=== PATIENT | male | born 1965 | race African-American/Black ===

== ENCOUNTER 2018-12-02 17:42 | Emergency (ER) | payer OTHER ==
[2018-12-02 17:57] VITALS: BP 134/88; PULSE 72; TEMP 98.6; BMI 25.1
[2018-12-02] MEDS ORDERED: SULFAMETHOXAZOLE/TRIMETHOPRIM 800MG/160MG D.S. TABLET PO ONE (18:11)
[2018-12-02] MEDS ORDERED: SULFAMETHOXAZOLE/TRIMETHOPRIM 800MG/160MG D.S. TABLET ONE (18:19)
--- NOTE | 2018-12-02 18:26 | PDOC ---
History of Present Illness - General Chief Complaint: Rash Stated Complaint: INSECT BITE Time Seen by Provider: 12/02/18 17:56 History Source: Patient Exam Limitations: No Limitations Past History - Past Medical History Allergies/Adverse Reactions: Allergies Allergy/AdvReac Type Severity Reaction Status Date / Time Penicillins Allergy Verified 12/02/18 17:53 Home Medications: Ambulatory Orders Gabapentin [Neurontin -] 300 mg PO Q8H 12/02/18 Hydrocortisone 1% Cream [Hytone 1% Cream -] 1 applic TP BID #1 tube 12/02/18 Sulfamethoxazole/Trimethoprim [Bactrim Ds -] 1 tab PO BID #14 tablet 12/02/18 COPD: No - Suicide/Smoking/Psychosocial Hx Smoking History: Unknown if ever smoked *Physical Exam - Vital Signs Last Vital Signs Temp Pulse Resp BP Pulse Ox 98.6 F 72 16 134/88 99 12/02/18 17:56 12/02/18 17:56 12/02/18 17:56 12/02/18 17:56 12/02/18 17:56 - Physical Exam General Appearance: No: Apparent Distress HEENT: positive: Pharynx Normal Respiratory/Chest: positive: Lungs Clear, Normal Breath Sounds. negative: Respiratory Distress Cardiovascular: positive: Regular Rhythm, Regular Rate, S1, S2. negative: Murmur Integumentary: positive: Rash (+raised erythmatous day along R aspect of neck (almost appearing as bite day), with raised maculopapular redness along neck, rash is not noted anywhere else, not vesicular in appearnce). negative: Jaundice, Clammy, Swelling, Ecchymosis, Bruising Neurologic: positive: Alert, Normal Mood/Affect Medical Decision Making - Medical Decision Making 53 y/o M hx of epilepsy (no longer on meds), asthma presents with rash along R aspect of neck x 1 week. Rash appeared while patient was helping his boss in the backyard. Is unsure if maybe something bit him. Denies recent travel, use of new meds/food/products. States was initially itchy and a bit painful, but is not anymore. Denies fever, sob, cp, abd pain, n/v/d. Unclear cause of rash - does not appear urticarial, vesicular Consider infectious cause? Will give dose of Bactrim and also trial hydrocortisone cream 12/02/18 18:15 *DC/Admit/Observation/Transfer Diagnosis at time of Disposition: Rash - Discharge Dispostion Disposition: HOME Condition at time of disposition: Stable Decision to Admit order: No - Prescriptions Prescriptions: Hydrocortisone 1% Cream [Hytone 1% Cream -] 1 applic TP BID #1 tube Sulfamethoxazole/Trimethoprim [Bactrim Ds -] 1 tab PO BID #14 tablet - Referrals - Patient Instructions Printed Discharge Instructions: DI for Rash Additional Instructions: Thank you for choosing [facility]. It was a pleasure taking care of you. Take the antibiotic as prescribed twice a day Also apply the topical cream to your rash Follow-up with your doctor in 2 days Return to the Emergency Department if your symptoms worsen or persist, you have fever, worsening of rash or other concerning symptoms. - Post Discharge Activity
== END 2018-12-02 18:36 | disposition home or self-care (01) ==
LOC: JERFT 17:42
DX: R21 Rash and other nonspecific skin eruption (principal); Z86.69 Personal history of other diseases of the nervous system and sense organs; Z87.09 Personal history of other diseases of the respiratory system
CPT/HCPCS: 99281-25

== ENCOUNTER 2019-06-05 09:23 | Emergency (ER) | payer OTHER ==
[2019-06-05] MEDS ORDERED: TETRACAINE 0.5% HCL 0.6ML DROPPER.BOTTLE OS ONE (09:36)
--- NOTE | 2019-06-05 09:36 | PDOC ---
History of Present Illness - General Chief Complaint: Eye Problem Stated Complaint: RIGHT EYE RED AND THROBBING Time Seen by Provider: 06/05/19 09:27 - History of Present Illness Initial Comments: 06/05/19 10:02 Chief complaint: Pain right eye HPI: Patient complains of pain, redness, and photophobia in the right eye since yesterday. No loss of vision. 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 It is possible something enter his eye at this time. Review of systems: As noted above. Otherwise reviewed and negative Past medical history: Prior metallic foreign body in the right eye approximately 2 years ago. Healed well. Asthma under control. Social/family history reviewed and noncontributory Physical exam: Alert and oriented well-developed well-nourished mild distress due to right eye discomfort, but cooperative Afebrile, vital signs normal. Visual acuity is 20/25 in each eye with glasses. Right eye: Conjunctiva moderately injected. Pupil round and reactive 3 mm. EOMs full without diplopia. Visual ibarra intact to confrontation. Fundus is benign. There is a punctate stain noted at approximately 9:00, border of the cornea. This is possibly a foreign body. Impression: Conjunctivitis, rule out foreign body. Plan: Dr. Cole, it service manager, was contacted by phone. The case was discussed. He will see the patient immediately in his office. The possibility of a serious injury was discussed with the patient, and the need for immediate follow-up as directed to avoid serious damage and/or visual loss. He understands and agrees. Past History - Past Medical History Allergies/Adverse Reactions: Allergies Allergy/AdvReac Type Severity Reaction Status Date / Time Penicillins Allergy Verified 06/05/19 09:24 Home Medications: Ambulatory Orders Gabapentin [Neurontin -] 300 mg PO Q8H 12/02/18 Albuterol Sulfate [Albuterol Sulfate Hfa] 1 inh IN PRN 06/05/19 Budesonide/Formeterol Fumarate [SYMBICORT 160/4.5mcg -] 1 inh IN DAILY 06/05/19 COPD: No - Psycho Social/Smoking Cessation Hx Smoking History: Unknown if ever smoked Discharge - Discharge Information Problems reviewed: Yes Clinical Impression/Diagnosis: Foreign body, eye Qualifiers: Encounter type: initial encounter Laterality: right Qualified Code(s): T15.91XA - Foreign body on external eye, part unspecified, right eye, initial encounter Condition: Stable Disposition: HOME - Admission No - Follow up/Referral Referrals: Casper Cole MD [Staff Physician] - - Patient Discharge Instructions Additional Instructions: There may be a foreign body in the right eye that is causing your redness and pain. It is important that you be examined immediately by an it service manager ( eye doctor) in order to possibly prevent further eye damage and visual loss. We have spoken to Dr. Cole, who will see you immediately in his office at [address] [place] [address]. Please go there right away for further examination and treatment. - Post Discharge Activity
[2019-06-05] MEDS ORDERED: FLUORESCEIN NA 1 EA STRIP OU ONE (09:37)
[2019-06-05] MEDS ORDERED: TETRACAINE 0.5% OPHTH SOLN 2 ML BOTTLE ONE (09:38)
[2019-06-05 09:39] VITALS: BP 122/93; PULSE 71; TEMP 98.2; BMI 34.0
[2019-06-05] MEDS ORDERED: FLUORESCEIN NA 1 EA STRIP ONE (09:39)
[2019-06-05] MEDS ORDERED: IBUPROFEN 400 MG TABLET (FP) PO ONE ×2 (09:57→09:58)
== END 2019-06-05 10:06 | disposition home or self-care (01) ==
LOC: FER 09:23
DX: T15.91XA Foreign body on external eye, part unspecified, right eye, initial encounter (principal); X58.XXXA Exposure to other specified factors, initial encounter; Y93.89 Activity, other specified; Y92.89 Other specified places as the place of occurrence of the external cause; Y99.0 Civilian activity done for income or pay; Z88.0 Allergy status to penicillin
CPT/HCPCS: 99281-25

== ENCOUNTER 2019-08-08 01:48 | Emergency (ER) | payer OTHER ==
[2019-08-08 02:05] VITALS: TEMP 98.3; BMI 25.1
--- NOTE | 2019-08-08 04:39 | PDOC ---
Attending Attestation - Resident Resident Name: Amanda Lindsay - ED Attending Attestation I have performed the following: I have examined & evaluated the patient, The case was reviewed & discussed with the resident, I agree w/resident's findings & plan - HPI HPI: 08/08/19 05:30 see resident hpi - Physicial Exam PE: 08/08/19 05:30 agree with resident exam - Medical Decision Making 08/08/19 05:31 53-year-old male status post trip and fall with right ankle swelling X-ray shows no obvious fracture or dislocation Due to swelling and tenderness and inability to ambulate patient will be placed in a splint, OCL with crutches until seen by orthopedics Neurovascularly intact distally
--- NOTE | 2019-08-08 04:39 | PDOC ---
History of Present Illness - General Chief Complaint: Injury Stated Complaint: ANKLE SWELLING Time Seen by Provider: 08/08/19 04:20 - History of Present Illness Initial Comments: 08/08/19 04:47 HPI: 53 y/o M with hx of asthma (on albuterol and symbicort) and right hip replacement presenting with right ankle pain and swelling following a fall. Patient said he turned a corner and felt unsteady and rolled his ankle inward. Had significant 10/10 pain and swelling and came to ED. Reports mild tingling at the lateral maleolus since the swelling has been worsening. Pain worse with ambulation and pressure. Hasnt tried any meds yet. No open wounds or abrasion or erythema PMHx: as noted above ROS: as noted SHx: Denies tobacco use; no alcohol use; no rec drugs Allergies: penicillin ROS: GENERAL/CONSTITUTIONAL: No fever or chills. No weakness. HEAD, EYES, EARS, NOSE AND THROAT: No change in vision. No ear pain or discharge. No sore throat. CARDIOVASCULAR: No chest pain or shortness of breath RESPIRATORY: No cough, wheezing, or hemoptysis. GASTROINTESTINAL: No nausea, vomiting, diarrhea or constipation. GENITOURINARY: No dysuria, frequency, or change in urination. MUSCULOSKELETAL: +ankle pain SKIN: No rash NEUROLOGIC: No headache, vertigo, loss of consciousness, or change in strength/ sensation. ENDOCRINE: No increased thirst. No abnormal weight change HEMATOLOGIC/LYMPHATIC: No anemia, easy bleeding, or history of blood clots. ALLERGIC/IMMUNOLOGIC: No hives or skin allergy. PE: GENERAL: Awake, alert, and fully oriented, mild acute distress HEAD: No signs of trauma, normocephalic, atraumatic EYES: EOMI, sclera anicteric, conjunctiva clear ENT: Auricles normal inspection, hearing grossly normal, nares patent, oropharynx clear without exudates. Moist mucosa NECK: Normal ROM, no lymphadenopathy LUNGS: No increased work of breathing, symmetrical chest rise, clear to auscultation bilaterally, no wheezes, crackles or rhonchi HEART: Regular rate and rhythm, normal S1 and S2, no murmur, peripheral pulses 2 + and equal bilaterally. ABDOMEN: Soft, nondistended, nontender, normoactive bowel sounds. No guarding, no rebound. No masses. No CVAT MUSCULOSKELETAL: right ankle with significant edema starting at distal mid solis to dorsum of foot, ttp lateral and medial maleolus as well as distal tib/fib, sensation intact, 2+ DP, motion of metatarsals intact, unable to tolerate ROM of ankle NEUROLOGICAL: Cranial nerves II through XII grossly intact. Normal speech, normal gait, no focal sensorimotor deficits SKIN: Warm, Dry, normal turgor, no rashes or lesions noted Past History - Past Medical History Allergies/Adverse Reactions: Allergies Allergy/AdvReac Type Severity Reaction Status Date / Time Penicillins Allergy Verified 08/08/19 02:04 Home Medications: Ambulatory Orders Gabapentin [Neurontin -] 300 mg PO Q8H 12/02/18 Albuterol Sulfate [Albuterol Sulfate Hfa] 1 inh IN PRN 06/05/19 Budesonide/Formeterol Fumarate [SYMBICORT 160/4.5mcg -] 1 inh IN DAILY 06/05/19 Asthma: Yes COPD: No - Psycho Social/Smoking Cessation Hx Smoking History: Never smoked Hx Alcohol Use: No Drug/Substance Use Hx: No *Physical Exam - Vital Signs Last Vital Signs Temp Pulse Resp BP Pulse Ox 98.3 F 100 H 18 123/77 98 08/08/19 02:03 08/08/19 02:03 08/08/19 02:03 08/08/19 02:03 08/08/19 02:03 Medical Decision Making - Medical Decision Making 08/08/19 05:30 53 y/o M with hx of asthma and right hip replacement presenting with right ankle pain and swelling following a fall. VSS, AF. PE with right ankle significant edema starting at distal mid solis to dorsum of foot, ttp lateral and medial maleolus as well as distal tib/fib, sensation intact, 2+ DP, motion of metatarsals intact, unable to tolerate ROM of ankle -XR right foot, ankle, tib fib 08/08/19 05:31 No fx observed at this time pain control with percocet will apply splint and vipul wrap DC home with pcp and ortho followup Discharge - Discharge Information Problems reviewed: Yes Clinical Impression/Diagnosis: Ankle sprain Qualifiers: Encounter type: initial encounter Involved ligament of ankle: unspecified ligament Laterality: right Qualified Code(s): S93.401A - Sprain of unspecified ligament of right ankle, initial encounter Condition: Stable Disposition: HOME - Follow up/Referral Referrals: Pito Villalpando [Primary Care Provider] - Kailash Johnson MD [Staff Physician] - Jaren Valerio MD [Staff Physician] - - Patient Discharge Instructions Patient Printed Discharge Instructions: DI for Ankle Sprain Additional Instructions: Additional Instructions: Please return to the emergency department with any new or worsening symptoms or concerns. Please follow up with your primary care physician this week. Please follow up with an orthopedist; we have listed a couple for you to call You may take motrin 600mg every 6 hours for pain control. You may ice your ankle for relief. Please keep your ankle elevated - Post Discharge Activity
[2019-08-08] MEDS ORDERED: HYDROmorphone HCL CARPU-JECT 2 MG/1 ML DISP.SYRIN IVPUSH ONE ×2 (04:40→04:52)
[2019-08-08] MEDS ORDERED: HYDROmorphone HCl 2 MG/ML VIAL ONE (04:43)
[2019-08-08 06:00] VITALS: BP 125/81; PULSE 67
== END 2019-08-08 06:20 | disposition home or self-care (01) ==
LOC: JER 01:48
PROC: 2W3QX1Z Immobilization of Right Lower Leg using Splint (ICD-10-PCS; principal; 2019-08-08)
DX: S93.401A Sprain of unspecified ligament of right ankle, initial encounter (principal); W18.39XA Other fall on same level, initial encounter; Y93.89 Activity, other specified; Y92.480 Sidewalk as the place of occurrence of the external cause; Y99.8 Other external cause status; J45.909 Unspecified asthma, uncomplicated
CPT/HCPCS: 73590-TC-RT-FY; 73610-TC-RT-FY; 73630-TC-RT-FY; 99282-25

== ENCOUNTER 2019-08-11 23:36 | Emergency (ER) | payer OTHER ==
[2019-08-11 23:52] VITALS: TEMP 98.2
[2019-08-12 01:26] VITALS: BMI 22.3
--- NOTE | 2019-08-12 01:52 | PDOC ---
History of Present Illness - General Chief Complaint: Edema Stated Complaint: RT. LEG EDEMA Time Seen by Provider: 08/12/19 01:20 - History of Present Illness Initial Comments: 08/12/19 04:11 The patient is a 53 year old with a history of asthma who presents for evaluation of right lower extremity swelling. The patient reports that he was recently seen in the ED after rolling his ankle 4 days ago. His initial plain films were negative the patient was placed in a splint. The patient reports that he has had worsening swelling since that time prompting his presentation to the ED for further evaluation. He otherwise denies fevers, chills, SOB, chest pain, nausea, vomiting, abdominal pain, numbness, tingling, weakness, or decreased sensation. Past History - Past Medical History Allergies/Adverse Reactions: Allergies Allergy/AdvReac Type Severity Reaction Status Date / Time Penicillins Allergy Verified 08/08/19 02:04 Home Medications: Ambulatory Orders Gabapentin [Neurontin -] 300 mg PO Q8H 12/02/18 Albuterol Sulfate [Albuterol Sulfate Hfa] 1 inh IN PRN 06/05/19 Budesonide/Formeterol Fumarate [SYMBICORT 160/4.5mcg -] 1 inh IN DAILY 06/05/19 Asthma: Yes COPD: No - Psycho Social/Smoking Cessation Hx Smoking History: Never smoked Hx Alcohol Use: No Drug/Substance Use Hx: No Review of Systems - Review of Systems Comments:: 08/12/19 04:15 Constitutional: No fevers, chills, fatigue, malaise HEENT: No Rhinorrhea, nasal congestion, visual changes Cardiovascular: No chest pain, syncope, palpitations, lightheadedness Respiratory: No Cough, SOB, Hemoptysis, Gastrointestinal: No Abdominal pain, Nausea, Vomiting, Constipation, Diarrhea, Melena Genitourinary: No Dysuria, Frequency, Urgency, Hesitancy, Hematuria, Flank pain Musculoskeletal: Right lower extremity swelling. No Myalgia, arthralgia Skin: No rashes, itching, bruising, pallor Neurologic: No Headache, Dizziness, Numbness, Weakness, or Tingling Psychiatric: No Hallucinations. No SI or HI *Physical Exam - Vital Signs Last Vital Signs Temp Pulse Resp BP Pulse Ox 98.2 F 83 20 113/62 96 08/11/19 23:51 08/11/19 23:51 08/11/19 23:45 08/11/19 23:51 08/11/19 23:51 - Physical Exam 08/12/19 04:16 General Appearance: Nourished. No Apparent Distress HEENT: EOMI, TANIKA. No Pharyngeal Erythema, Tonsillar Exudate, Tonsillar Erythema Neck: No Cervical Lymphadenopathy Respiratory/Chest: Lungs Clear, Normal Breath Sounds. No Crackles, Rales, Rhonchi, Wheezing Cardiovascular: Regular Rhythm, Regular Rate. No Murmur, Gallops, Rubs Gastrointestinal/Abdominal: Normal Bowel Sounds, Soft. No Guarding, Rebound, Tenderness Musculoskeletal: No CVA Tenderness Extremity: Normal Capillary Refill, No pain with passive movement. Non pitting edema noted to the right lower extremity. Integumentary: Normal Color, Dry, Warm Neurologic: Fully Oriented, Alert, Normal Mood/Affect, Normal Response, Motor Strength 5/5. Normal sensation to light touch and temperature. ED Treatment Course - RADIOLOGY Radiology Studies Ordered: Category Date Time Status DUPLEX VASCUL US-1 LEG [US] Stat Ultrasound 08/12/19 01:27 Taken Medical Decision Making - Medical Decision Making 08/12/19 04:17 The patient is a 53 year old with a history of asthma who presents for evaluation of right lower extremity swelling. Given the patient's history and physical exam, we obtained a DVT US which was unremarkable as preliminarily read by our outside solar sales consultant radiologist. The patient's splint was redressed here in the ED with improvement in his symptoms. The patient notes that he already has orthopedic follow up scheduled. We are comfortable discharging the patient home in stable condition. Patient and family made aware of impression and plan, return precautions discussed including but not limited to worsening pain or symptoms, fevers, or signs of infection, chest pain, respiratory distress, inability to tolerate oral intake, dehydration, syncope, or neurologic changes. The patient is to follow up with PMD and specialist as recommended within 1 week , follow up information provided and the patient will call for an appointment. The patient is to take medications as instructed for duration of time and continue with supportive care, avoid triggers and precipitants. Patient is safe for outpatient follow-up. Discharge - Discharge Information Problems reviewed: Yes Clinical Impression/Diagnosis: Swelling of lower extremity Condition: Stable Disposition: HOME - Follow up/Referral Referrals: Pito Villalpando [Primary Care Provider] - - Patient Discharge Instructions Patient Printed Discharge Instructions: How to Take Care of Your Splint Additional Instructions: 1) Please follow-up with your primary care doctor in the next 2-3 days. Please call tomorrow to schedule a follow up appointment. If you cannot follow up with your doctor within 1 week please return to the Emergency Department for any urgent issues. 2) Your imaging results were normal here in the ER. 3) If you have any worsening of symptoms or any other concerns, please return to the ER immediately. Return if worsening symptoms including fevers, headache, vomiting, visual or hearing disturbances, abdominal pain, chest pain, shortness of breath, syncope, dehydration, inability to take things by mouth/vomiting, altered mental status, or worsening concerning symptoms. 4) Please continue taking your home medications as directed. Side effects may include upset stomach, abdominal pain, vomiting, or diarrhea. Do not drink alcohol with your medications. - Post Discharge Activity
--- NOTE | 2019-08-12 02:48 | PDOC ---
Attending Attestation - Resident Resident Name: Tyler Forte - ED Attending Attestation I have performed the following: I have examined & evaluated the patient, The case was reviewed & discussed with the resident, I agree w/resident's findings & plan - HPI HPI: 08/12/19 02:47 see resident hpi - Physicial Exam PE: 08/12/19 02:47 agree with resident exam - Medical Decision Making 08/12/19 02:48 53-year-old male with persistent ankle swelling after an injury several days ago Ultrasound today is negative for DVT Recent x-rays of the leg ankle and foot officially read as negative He does have an appointment with orthopedics Splint replaced, Luis rewrapped and he will continue with crutches until cleared by Ortho
[2019-08-12 03:01] VITALS: BP 116/82; PULSE 88
== END 2019-08-12 03:02 | disposition home or self-care (01) ==
LOC: JER 23:36
DX: R22.41 Localized swelling, mass and lump, right lower limb (principal); Z87.39 Personal history of other diseases of the musculoskeletal system and connective tissue
CPT/HCPCS: 93971-TC; 99282-25

== ENCOUNTER 2021-09-15 19:15 | Emergency (ER) | payer OTHER ==
[2021-09-15 19:43] VITALS: BMI 25.1
[2021-09-15] MEDS ORDERED: ALBUTEROL SO4 2.5/IPRATROPIUM 0.5 INH SOL 3 ML VIAL.NEB. NEB ONE ×5 (19:50→21:30)
[2021-09-15] MEDS ORDERED: methylPREDNISolone NA SUCC 125 MG/2 ML VIAL IVPB ONE (19:51)
[2021-09-15] MEDS ORDERED: methylPREDNISolone NA SUCC 125 MG/2 ML VIAL ONE (19:55)
[2021-09-15 20:39] LABS: BASO % 0.8 % (0-2.0); HEMATOCRIT 39.4 % (35.4-49); HEMOGLOBIN 13.8 GM/dL (11.7-16.9); MCH 31.1 pg (25.7-33.7); NEUT % 53.2 % (42.8-82.8); PLATELET COUNT 283 10^3/uL (134-434); RBC 4.43 M/mm3 (4.00-5.60); RDW 13.4 % (11.9-15.9)
[2021-09-15 20:53] LABS: ALBUMIN 4.2 g/dl (3.4-5.0); CALCIUM 9.6 mg/dL (8.5-10.1)
[2021-09-15 20:54] LABS: BLOOD UREA NITROGEN 10.3 mg/dL (7-18)
[2021-09-15 20:56] LABS: CREATININE 0.7 mg/dL (0.55-1.3)
[2021-09-15 20:58] LABS: BILIRUBIN,TOTAL 0.5 mg/dL (0.2-1); TOT PROT 7.6 g/dl (6.4-8.2)
[2021-09-15 23:06] VITALS: BP 140/74; PULSE 84; TEMP 97.6
== END 2021-09-15 23:07 | disposition home or self-care (01) ==
LOC: JER 19:15
PROC: 3E0F7GC Introduction of Other Therapeutic Substance into Respiratory Tract, Via Natural or Artificial Opening (ICD-10-PCS; principal; 2021-09-15)
PROC: 3E0F7GC Introduction of Other Therapeutic Substance into Respiratory Tract, Via Natural or Artificial Opening (ICD-10-PCS; 2021-09-15)
PROC: 3E033GC Introduction of Other Therapeutic Substance into Peripheral Vein, Percutaneous Approach (ICD-10-PCS; 2021-09-15)
DX: R06.00 Dyspnea, unspecified (principal)
CPT/HCPCS: 36415; 71045-TC-FY; 71275-TC; 80053; 84484; 85025; 85379; 93005; 93010; 99285-25; C9803; Q9967; U0003; U0005

== ENCOUNTER 2022-11-27 18:14 | Emergency (ER) | payer OTHER ==
[2022-11-27 18:26] VITALS: BP 125/84; PULSE 94; RESP 18; TEMP 97.9; BMI 24.8
[2022-11-27] MEDS ORDERED: KETOROLAC TROMETHAMINE 15 MG/ML VIAL IM ONE (19:30)
[2022-11-27] MEDS ORDERED: KETOROLAC TROMETHAMINE 15 MG/ML VIAL ONE (19:32)
== END 2022-11-27 20:31 | disposition home or self-care (01) ==
LOC: JERFT 18:14 → JER 18:14 → JERFT 20:31
PROC: 3E033NZ Introduction of Analgesics, Hypnotics, Sedatives into Peripheral Vein, Percutaneous Approach (ICD-10-PCS; principal; 2022-11-27)
DX: S93.401A Sprain of unspecified ligament of right ankle, initial encounter (principal); V86.46XA Person injured while boarding or alighting from a dirt bike or motor/cross bike, initial encounter
CPT/HCPCS: 73562-TC-RT-FY; 73590-TC-RT-FY; 73610-TC-RT-FY; 73630-TC-RT-FY; 99284-25

== ENCOUNTER 2023-10-30 19:27 | Emergency (ER) | payer OTHER ==
[2023-10-30 19:33] VITALS: BP 133/76; PULSE 60; RESP 20; TEMP 97.6; BMI 25.1
[2023-10-30] MEDS ORDERED: FLUORESCEIN NA 1 EA STRIP ONE (19:58)
[2023-10-30] MEDS ORDERED: TETRACAINE 0.5% OPHTH SOLN 2 ML BOTTLE ONE (19:58)
[2023-10-30] MEDS: TETRACAINE 0.5% HCL 0.6ML DROPPER.BOTTLE OD ONE (20:10)
[2023-10-30] MEDS: FLUORESCEIN NA 1 EA STRIP OD ONE (20:10)
[2023-10-30] MEDS ORDERED: ERYTHROMYCIN 0.5% OPHTHALMIC OINTMENT 3.5 GM TUBE ONE (20:11)
[2023-10-30] MEDS: ERYTHROMYCIN 0.5% OPHTHALMIC OINTMENT 3.5 GM TUBE OD ONE (20:11)
== END 2023-10-30 20:20 | disposition home or self-care (01) ==
LOC: JERFT 19:27
DX: H16.8 Other keratitis (principal)
CPT/HCPCS: 99283-25

== ENCOUNTER 2023-12-31 13:32 | Emergency (ER) | payer OTHER ==
[2023-12-31 13:36] VITALS: BP 126/76; PULSE 77; RESP 18; TEMP 98; BMI 24.4
[2023-12-31] MEDS ORDERED: TETRACAINE 0.5% OPHTH SOLN 2 ML BOTTLE ONE (14:04)
[2023-12-31] MEDS ORDERED: FLUORESCEIN NA 1 EA STRIP ONE (14:04)
[2023-12-31] MEDS: FLUORESCEIN NA 1 EA STRIP OS ONE (14:22)
[2023-12-31] MEDS: TETRACAINE 0.5% HCL 0.6ML DROPPER.BOTTLE OS ONE (14:22)
[2023-12-31] MEDS ORDERED: ERYTHROMYCIN 0.5% OPHTHALMIC OINTMENT 3.5 GM TUBE ONE (14:37)
[2023-12-31] MEDS: ERYTHROMYCIN 0.5% OPHTHALMIC OINTMENT 3.5 GM TUBE OS ONE (14:40)
[2023-12-31] MEDS: ERYTHROMYCIN 0.5% OPHTHALMIC OINTMENT 3.5 GM TUBE OS SCH (14:41)
== END 2023-12-31 14:44 | disposition home or self-care (01) ==
LOC: JERFT 13:32
DX: S05.02XA Injury of conjunctiva and corneal abrasion without foreign body, left eye, initial encounter (principal); X58.XXXA Exposure to other specified factors, initial encounter
CPT/HCPCS: 99283-25